=== PATIENT | male | born 1975 ===

== ENCOUNTER 2020-05-03 16:17 | Observation (INO) ==
[2020-05-03] MEDS ORDERED: GLUCAGON 1 MG VIAL IM PRN (18:33)
[2020-05-03] MEDS ORDERED: ONDANSETRON 4 MG/2 ML VIAL IV PRN (18:33)
[2020-05-03] MEDS ORDERED: DEXTROSE 50% 25 GM/50 ML VIAL IV PRN (18:33)
[2020-05-03] MEDS ORDERED: ACETAMINOPHEN 325 MG TABLET PO PRN (18:33)
[2020-05-03] MEDS ORDERED: ACETAMINOPHEN 500 MG TABLET PO PRN (19:00)
[2020-05-03] MEDS: LACTATED RINGERS 1,000 ML IV SCH (19:06)
[2020-05-03 19:59] LABS: Troponin I < 0.015 NG/ML (0.00-0.045)
[2020-05-03] MEDS ORDERED: ENOXAPARIN 40 MG/0.4 ML SYRINGE SUBCUT SCH (21:00)
[2020-05-03 22:12] LABS: Troponin I < 0.015 NG/ML (0.00-0.045)
[2020-05-03] MEDS: INSULIN LISPRO 100 UNIT/ML SUBCUT SCH (22:54)
[2020-05-04 01:09] LABS: INR 1.1; PT Patient Result 11.5 SECS (9.8-11.9); Partial Thromboplastin Time 34.1 SECS (23.9-33.8)
[2020-05-04 01:23] LABS: Basophils # 0.1 10*3/uL (0.0-0.2); Basophils % 0.6 % (0.0-0.8); Eosinophils # 0.1 10*3/uL (0.0-0.87); Eosinophils % 1.7 % (0.00-10.9); Hematocrit 45.9 VOL% (42.0-52.0); Hemoglobin 14.6 GM/DL (14.0-18.0); Immature Granulocytes % 0.6 %; Immature Granulocytes Absolute 0.05 #; Lymphocytes # 2.9 10*3/uL (1.4-4.0); Lymphocytes % 35.7 % (21.2-54.2); Mean Corpuscular HGB Conc 31.8 GM/DL (32-36); Mean Corpuscular Volume 87.9 FL (87-102); Mean Platelet Volume 10.9 FL (9.6-12.0); Monocytes % 12.4 % (1.7-12.7); Platelet Count 239 T/CUMM (130-400); Red Blood Count 5.22 MC/CUMM (3.8-5.5); Red Cell Distribution Width 13.9 % (9.3-17.3); White Blood Count 8.1 T/CUMM (4-12)
[2020-05-04 01:32] LABS: Troponin I < 0.015 NG/ML (0.00-0.045)
[2020-05-04 01:38] LABS: Albumin 3.3 G/DL (3.4-5.0); Bilirubin,Total 0.6 MG/DL (0.2-1.0); Calcium 8.5 MG/DL (8.5-10.1); Osmolality,Calculated 278.4 MOS/KG (273-304); Risk Ratio 7.25; Thyroid Stimulating Hormone 2.56 uIU/ml (0.358-3.74); Total Protein 7.1 G/DL (6.4-8.3)
[2020-05-04] MEDS: LACTATED RINGERS 1,000 ML IV SCH ×2 (04:52→15:49)
[2020-05-04] MEDS: INSULIN LISPRO 100 UNIT/ML SUBCUT SCH ×2 (07:24→13:23)
[2020-05-04] MEDS ORDERED: ASPIRIN EC 325 MG TABLET PO SCH (09:00)
[2020-05-04] MEDS ORDERED: PANTOPRAZOLE 40 MG TABLET PO SCH (09:00)
[2020-05-04 12:38] LABS: Barbiturates Screen,Urine Negative (Negative); Benzodiazepines Screen,Urine Negative (Negative); Cannabinoid Screen,Urine Negative (Negative); Opiate Screen,Urine Positive (Negative); Phencyclidine Screen,Urine Negative (Negative)
[2020-05-04 13:41] VITALS: BP 123/69
[2020-05-04] MEDS ORDERED: ATORVASTATIN 10 MG TABLET PO SCH (21:00)
== END 2020-05-04 15:49 | disposition home or self-care (01) ==
LOC: N.TELEN → SUATTDRO 17:29
PROVIDERS: ADMIT Internal Medicine; ATTEND Internal Medicine